=== PATIENT | female | born 1990 | race Caucasian/White ===

== ENCOUNTER → 2020-06-25 | Outpatient (CLI) | payer OTHER ==
[~2020-06-25] MED LIST: COLACE 100MG C100 MG PO; FERROUS SULFAT325 M2 PO
== END ==
LOC: CT 08:30
DX: R10.9 Unspecified abdominal pain (principal); R14.0 Abdominal distension (gaseous)
CPT/HCPCS: 74160; Q9967

== ENCOUNTER 2022-01-06 19:45 | Emergency (ER) | payer OTHER ==
[2022-01-06 20:10] LABS: BORDETELLA PARAPERTUSSIS Not Detected (Not Detectd); BORDETELLA PERTUSSIS Not Detected (Not Detectd); CHLAMYDIA PNEUMONIAE Not Detected (Not Detectd); CORONAVIRUS HKU1 Not Detected (Not Detectd); CORONAVIRUS NL63 Not Detected (Not Detectd); CORONAVIRUS OC43 Not Detected (Not Detectd); CORONOAVIRUS 229E Not Detected (Not Detectd); HUMAN METAPNEUMOVIRUS Not Detected (Not Detectd); HUMAN RHINOVIRUS/ENTEROVIRUS Not Detected (Not Detectd); INFLUENZA A Not Detected (Not Detectd); INFLUENZA B Not Detected (Not Detectd); MYCOPLASMA PNEUMONIAE Not Detected (Not Detectd); PARAINFLUENZA VIRUS 1 Not Detected (Not Detectd); PARAINFLUENZA VIRUS 2 Not Detected (Not Detectd); PARAINFLUENZA VIRUS 3 Not Detected (Not Detectd); PARAINFLUENZA VIRUS 4 Not Detected (Not Detectd); RESPIRATORY SYNCYTIAL VIRUS Not Detected (Not Detectd)
[2022-01-06 20:19] LABS: HEMOGLOBIN 13.4 gm/dl (12.3-15.3); RED BLOOD COUNT 4.43 M/UL (4.00-5.10); WHITE BLOOD COUNT 7.7 K/UL (4.5-11.0)
[2022-01-06 20:39] LABS: BUN/CREATININE RATIO 15 (0-10)
[2022-01-06 21:19] LABS: SARS-CoV-2 NOT DETECTED (Not Detectd)
[2022-01-06] MEDS ORDERED: NAPROXEN500 MG PO (23:52)
[2022-01-06] MEDS ORDERED: ZOFRAN 4 MG TAB4 MG PO (23:52)
== END 2022-01-07 00:37 | disposition home or self-care (01) ==
LOC: ER1 19:45
PROVIDERS: Physician Assistant Medical
DX: R51.9 Headache, unspecified (principal); R11.0 Nausea; Z20.822 Contact with and (suspected) exposure to COVID-19
CPT/HCPCS: 80053; 85025; 87633; 96374; 96375; 99284; J1200; J1885; J2765